=== PATIENT | female | born 1980 | race Caucasian/White ===

== ENCOUNTER → 2018-11-25 19:15 | Outpatient (CLI) | payer BC, SELFPAY ==
[2018-11-25 15:19] VITALS: BMI 43.2
[2018-11-28 12:26] LABS: HPV APTIMA, High Risk Negative (Negative)
== END ==
PROVIDERS: Referring Provider Nurse Practitioner Women's Health; Visit Provider Nurse Practitioner Women's Health
DX: Z12.4 Encounter for screening for malignant neoplasm of cervix (principal)
CPT/HCPCS: 87624; 88175; G0145

== ENCOUNTER → 2018-12-05 10:32 | Outpatient (CLI) | payer BC, SELFPAY ==
[2018-11-25 15:19] VITALS: BMI 43.2
--- NOTE | 2018-12-05 10:36 | BI_ITS ---
MAMMOGRAPHY - BILATERAL SCREENING REASON FOR EXAM: Female, 38 years old. Routine annual screening examination. PERTINENT HISTORY: Non-contributory. TECHNIQUE: Digital bilateral breast gualberto (3D mammographic acquisition) in the CC and MLO projections. 2-D mediolateral oblique (MLO) and craniocaudad (CC) views of both breasts were obtained. CAD: Full Field Digital Mammography with Computer Added Detection was performed. COMPARISON: None. Baseline examination. FINDINGS: Breast Composition: There are scattered areas of fibroglandular density. There are no dominant masses or suspicious calcifications. No other significant abnormalities are identified. BI/SCREENING MAMM (CAD), BILAT IMPRESSION: Negative screening mammogram. Yearly followup mammogram recommended. (A) ASSESSMENT CATEGORY: BIRADS Category 1: Negative. A letter regarding these results will be sent to the patient by the facility within 30 days. Approximately 10% of breast cancers are not detected by mammography. A normal mammogram should not delay biopsy of a clinically suspicious abnormality. [id number] Electronically Signed: Steven Mendoza MD at 8:24 EST Tel [phone], Service support ,
== END ==
PROVIDERS: Visit Provider Nurse Practitioner Women's Health
DX: Z12.31 Encounter for screening mammogram for malignant neoplasm of breast (principal)
CPT/HCPCS: 77063; 77067

== ENCOUNTER → 2020-04-28 14:57 | Outpatient (CLI) | payer BC, SELFPAY ==
[2018-11-25 15:19] VITALS: BMI 43.2
--- NOTE | 2020-04-28 15:00 | US_ITS ---
STUDY: ULTRASOUND OF THE FEMALE PELVIS - COMPLETE REASON FOR EXAM: Female, 40 years old. Left-sided pain TECHNIQUE: Transabdominal and Transvaginal TECHNICAL QUALITY: Adequate. COMPARISON: 08/19/2017 FINDINGS: The uterus is anteverted and is in a midline position. The uterus measures 7.9 x 3.7 x 3.6 cm. Normal uterine cervix. The endometrium measures there is a 1.3 x 1.2 cm fibroid in the body of uterus. mm in thickness, and is hyperechoic. There is no demonstrated endometrial mass. There is no demonstrated myometrial mass. The right ovary is visualized. The right ovary measures 2.7 x 1.7 x 1.7 cm. There is no right ovarian cyst or ovarian mass. There is no visualized right adnexal mass or complex lesion. There is normal arterial and normal venous vascularity. The left ovary is not visualized. There is no fluid in the cul-de-sac. US/Transvaginal Non- IMPRESSION: Left ovary not visualized. Normal right ovary with normal Doppler flow. 1.3 x 1.2 cm fibroid in the uterus. Electronically Signed: Juan Jose Rahman, at 16:34 EDT Tel , Service support ,
--- NOTE | 2020-04-28 15:00 | US_ITS ---
STUDY: ULTRASOUND OF THE FEMALE PELVIS - COMPLETE REASON FOR EXAM: Female, 40 years old. Left-sided pain TECHNIQUE: Transabdominal and Transvaginal TECHNICAL QUALITY: Adequate. COMPARISON: 08/19/2017 FINDINGS: The uterus is anteverted and is in a midline position. The uterus measures 7.9 x 3.7 x 3.6 cm. Normal uterine cervix. The endometrium measures there is a 1.3 x 1.2 cm fibroid in the body of uterus. mm in thickness, and is hyperechoic. There is no demonstrated endometrial mass. There is no demonstrated myometrial mass. The right ovary is visualized. The right ovary measures 2.7 x 1.7 x 1.7 cm. There is no right ovarian cyst or ovarian mass. There is no visualized right adnexal mass or complex lesion. There is normal arterial and normal venous vascularity. The left ovary is not visualized. There is no fluid in the cul-de-sac. US/Pelvic (Non ) IMPRESSION: Left ovary not visualized. Normal right ovary with normal Doppler flow. 1.3 x 1.2 cm fibroid in the uterus. Electronically Signed: Juan Jose Rahman, at 16:34 EDT Tel , Service support ,
== END ==
PROVIDERS: Referring Provider Nurse Practitioner Women's Health; Visit Provider Nurse Practitioner Women's Health
DX: R10.2 Pelvic and perineal pain (principal)
CPT/HCPCS: 76830; 76856

== ENCOUNTER → 2020-05-13 08:04 | Outpatient (CLI) | payer BC, SELFPAY ==
[2018-11-25 15:19] VITALS: BMI 43.2
[2020-05-13 08:24] LABS: Hematocrit 40.3 % (37-47); Hemoglobin 13.5 g/dL (12.0-15.0); Mean Corp Hgb Conc 33.5 g/dL (32-36); Mean Corpuscular Hgb 31.6 pg (27.0-32.0); Mean Corpuscular Volume 94.4 fL (81-99); Mean Platelet Vol. 9.9 fl (6.2-12.0); Platelet Count 237 K/mm3 (150-450); RBC Distribution Width CV 12.6 % (11.6-14.6); RBC Distribution Width SD 43.1 fl (35.1-43.9); Red Blood Count 4.27 M/mm3 (4.2-5.4); White Blood Count 6.9 K/mm3 (4.4-11.0)
[2020-05-13 08:53] LABS: ALB/GLOB Ratio 0.8 RATIO (0.9-2.4); AST(SGOT) 14 U/L (15-37); Alanine Aminotransfer ALT/SGPT 35 U/L (13-56); Albumin, Serum 3.2 g/dL (3.2-5.0); Alkaline Phosphatase 78 U/L (45-117); Anion Gap 6 (5-15); BUN 17 mg/dL (7-18); BUN/Creat Ratio 22.6 RATIO (10-20); Calcium,Total 8.6 mg/dL (8.5-10.1); Chloride 104 mmol/L (98-107); Cholesterol 224 mg/dL (200); Creatinine, Serum 0.75 mg/dL (0.55-1.02); EST Glomerular Filtration Rate 90 mL/min (>60); Est Glom Filt Rate - Afr Amer 109 mL/min (>60); Globulin 3.8 g/dL (2.2-4.2); Glucose 109 mg/dL (74-106); High Density Lipoprotein 51 mg/dL; Sodium Level 138 mmol/L (136-145); Triglycerides 247 mg/dL; Very Low Density Lipoprotein 49 mg/dL (5-40)
== END ==
PROVIDERS: PCP Family Medicine; Referring Provider Family Medicine; Visit Provider Family Medicine
DX: R10.9 Unspecified abdominal pain (principal); Z13.220 Encounter for screening for lipoid disorders
CPT/HCPCS: 36415; 80053; 80061; 85027

== ENCOUNTER → 2020-06-15 13:18 | Outpatient (CLI) | payer BC, SELFPAY ==
[2018-11-25 15:19] VITALS: BMI 43.2
[2020-06-15 15:28] LABS: CRP < 2.90 mg/L (0.0-3.0)
[2020-06-19 16:08] LABS: Endomysial Antibody IgA Negative (Negative)
[2020-06-21 16:45] LABS: Deamidated Gliadin IgA 3 units (0-19); Deamidated Gliadin IgG 4 units (0-19); Immunoglobulin A 251 mg/dL (87-352); t-Transglutaminase IgA <2 U/mL (0-3)
== END ==
PROVIDERS: PCP Family Medicine; Referring Provider Internal Medicine Gastroenterology; Visit Provider Internal Medicine Gastroenterology
DX: R10.9 Unspecified abdominal pain (principal)
CPT/HCPCS: 36415; 82784; 83516; 86140; 86255

== ENCOUNTER → 2020-06-23 | Outpatient (CLI) | payer BC, SELFPAY ==
[2018-11-25 15:19] VITALS: BMI 43.2
--- NOTE | 2020-06-23 | COLBX_PTH ---
PATIENT: CECILY KLINE LOC: [facility] U#:[id number] AGE/SX: 40/F ROOM: RE06/23/[address]: Dr. Ronald Szymanski MD : 1980 BED: DIS: 06/23/2020 SPEC #: [id number] RECD: 06/23/20 14:53 STATUS: THAO SIMMONS #: [id number] ОЛЬГА: 06/23/20 00:[address]: Ronald Szymanski DEPT: SURGICAL PATHOLOGY RECD BY: Avinash Phipps ENTERED: 06/26/20 08:21 SP TYPE: COLON BX OTHR DR: Dr. Zev Ruiz MD [facility] Tissues: COLON BIOPSY Procedures: Surgery Specimen Level IV HEADER OPERATION: Colon with biopsies PRE-OP DIAGNOSIS: LLQ abdomen pain, IBS TISSUE SUBMITTED: Right and left colon biopsy, rule out microscopic colitis MICROSCOPIC DIAGNOSIS Right and left colon, biopsy: Fragments of colonic mucosa, no pathologic diagnosis. SJ:manju 06/27/20 MICROSCOPIC DESCRIPTION Slides are reviewed. GROSS DESCRIPTION Received in fixative is one container labeled with the patient's name and designated right and left colon biopsy. The specimen consists of multiple irregular fragments of light muller soft tissue that in aggregate measure 1.5 x 1 x 0.1 cm. The specimen is totally submitted in one cassette. / FENG:manju 06/26/20 TC:4 CPT: 66927
== END | disposition home or self-care (01) ==
LOC: LABSPEC 15:29
PROVIDERS: PCP Family Medicine; Referring Provider Internal Medicine Gastroenterology; Visit Provider Internal Medicine Gastroenterology
DX: R10.32 Left lower quadrant pain (principal); K58.9 Irritable bowel syndrome, unspecified
CPT/HCPCS: 88305

== ENCOUNTER 2021-12-05 17:37 | Outpatient (CLI) | payer BC, SELFPAY ==
--- NOTE | 2021-12-05 17:45 | CT_ITS ---
STUDY: CT SOFT TISSUE NECK WITH CONTRAST REASON FOR EXAM: Female, 41 years old. EAR PAIN RADIATION DOSAGE (If Supplied By Facility): CTDIvol = ( 19.29 ) mGy, DLP = ( 534.89 ) mGycm TECHNIQUE: The patient was scanned in a multi-detector CT scanner. High resolution transaxial imaging was performed following intravenous administration of IV 100mL Isovue-300. Sagittal and coronal images were reconstructed. Individualized dose optimization techniques were used for this CT. COMPARISON: None. FINDINGS: Normal bilateral parotid glands. Normal bilateral research nutritionist spaces. Normal bilateral parapharyngeal spaces. Normal bilateral carotid spaces. There is a tortuous appearance of the bilateral carotid arteries. Normal bilateral sublingual and submandibular glands and spaces. Normal visualized nasopharynx. Normal retropharyngeal space. Normal perivertebral space. Normal visualized bilateral faucial tonsils. The visualized tongue, tongue base and oropharynx are normal. There is a nonspecific elongated appearance of the uvula. The visualized cervical lymph nodes (levels I-) are within normal size limits, and maintain normal morphology. There is no demonstrated solid or cystic mass lesion. There is no abnormal contrast enhancement. Normal epiglottis, bilateral vallecula and hypopharynx. The pre-epiglottic and paraglottic adipose spaces are normal. Normal visualized bilateral piriform sinuses, aryepiglottic folds, vocal cords, and arytenoid-cricoid articulations. Normal subglottic trachea. Normal bilateral lobes of the thyroid gland. Normal visualized pulmonary apices. There are small benign-appearing bony structures osteoid osteomas within the frontal sinuses. The ethmoid sinuses are clear. There is a right-sided greater than left middle turbinate severo bullosa. The bilateral ossicles appear well aerated. Mastoid air cells are relatively clear. External auditory canals are clear. There is a symmetric appearance of the internal auditory canals. There is multilevel degenerative changes of the cervical spine. C2-C3 there is a left lateral disc osteophyte with moderate left neural foraminal narrowing. At C5-C6 there is a broad disc osteophyte moderate neural foraminal narrowing moderate central stenosis, See image 30 series 2. At C6-C7 there is a broad disc osteophyte with mild neural foraminal narrowing minimal central stenosis. CT/Soft Tissue Neck WITH Contrast IMPRESSION: Normal enhanced CT examination of the soft tissues of the neck. Advanced degenerative change at the level of C5-C6 with moderate neural foraminal narrowing moderate central stenosis. Recommend MRI of the cervical spine when appropriate. Electronically Signed: Gillian Early MD at 0:49 EST Tel , Service support ,
== END 2021-12-05 23:59 | disposition short-term general hospital (02) ==
PROVIDERS: Visit Provider Otolaryngology
DX: H92.01 Otalgia, right ear (principal)
CPT/HCPCS: 70491; Q9967

== ENCOUNTER 2022-03-13 11:12 | Outpatient (CLI) | payer BC, SELFPAY ==
[2022-03-13 15:16] LABS: Hematocrit 42.9 % (37-47); Hemoglobin 14.4 g/dL (12.0-15.0); Mean Corp Hgb Conc 33.6 g/dL (32-36); Mean Corpuscular Hgb 30.6 pg (27.0-32.0); Mean Corpuscular Volume 91.1 fL (81-99); Mean Platelet Vol. 10.4 fl (6.2-12.0); Platelet Count 293 K/mm3 (150-450); RBC Distribution Width CV 12.8 % (11.6-14.6); RBC Distribution Width SD 41.6 fl (35.1-43.9); Red Blood Count 4.71 M/mm3 (4.2-5.4); White Blood Count 6.1 K/mm3 (4.4-11.0)
[2022-03-13 15:40] LABS: Vitamin B12 490 pg/mL (211-911)
[2022-03-13 15:42] LABS: ALB/GLOB Ratio 0.9 RATIO (0.9-2.4); AST(SGOT) 26 U/L (15-37); Alanine Aminotransfer ALT/SGPT 46 U/L (13-56); Albumin, Serum 3.6 g/dL (3.2-5.0); Alkaline Phosphatase 68 U/L (45-117); Anion Gap 7 (5-15); BUN 15 mg/dL (7-18); BUN/Creat Ratio 17.3 RATIO (10-20); Chloride 105 mmol/L (98-107); Creatinine, Serum 0.87 mg/dL (0.55-1.02); EST Glomerular Filtration Rate 75 mL/min (>60); Est Glom Filt Rate - Afr Amer 91 mL/min (>60); Globulin 4.1 g/dL (2.2-4.2); Glucose 95 mg/dL (74-106); Potassium 4.3 mmol/L (3.5-5.1); Protein, Total 7.7 g/dL (6.4-8.2); Sodium Level 140 mmol/L (136-145); Thyroid Stim Hormone (TSH) 1.64 uIU/mL (0.358-3.74)
== END 2022-03-13 23:59 | disposition home or self-care (01) ==
LOC: MFPLAB 11:13
PROVIDERS: PCP Nurse Practitioner Family; Referring Provider Nurse Practitioner Family; Visit Provider Nurse Practitioner Family
DX: R53.83 Other fatigue (principal)
CPT/HCPCS: 36415; 80053; 82306; 82607; 84443; 85027

== ENCOUNTER 2022-05-01 07:20 | Outpatient (RCR) | payer BC, SELFPAY | END 2022-05-23 23:59 | LOC: NS 07:20 | PROVIDERS: PCP Nurse Practitioner Family; Referring Provider Nurse Practitioner Family; Visit Provider Nurse Practitioner Family | DX: Z71.3 Dietary counseling and surveillance (principal); E66.9 Obesity, unspecified; Z68.42 Body mass index [BMI] 45.0-49.9, adult | CPT/HCPCS: 97802 ==

== ENCOUNTER 2022-10-12 09:30 | Outpatient (CLI) | payer BC, SELFPAY ==
[2022-10-12 11:28] LABS: Cholesterol 261 mg/dL (200); Glucose 124 mg/dL (74-106); High Density Lipoprotein 53 mg/dL; Triglycerides 303 mg/dL; Very Low Density Lipoprotein 61 mg/dL (5-40)
[2022-10-14 10:00] LABS: Vitamin D,25 Hydroxy 20.7 ng/mL
== END 2022-10-12 23:59 | disposition home or self-care (01) ==
PROVIDERS: PCP Internal Medicine; Referring Provider Nurse Practitioner Women's Health; Visit Provider Nurse Practitioner Women's Health
DX: Z13.1 Encounter for screening for diabetes mellitus (principal); Z13.220 Encounter for screening for lipoid disorders; Z13.29 Encounter for screening for other suspected endocrine disorder
CPT/HCPCS: 36415; 80061; 82306; 82947; 84443

== ENCOUNTER 2022-10-14 14:32 | Outpatient (CLI) | payer BC, SELFPAY ==
--- NOTE | 2022-10-14 14:33 | BI_ITS ---
MAMMOGRAPHY - BILATERAL SCREENING REASON FOR EXAM: Female, 42 years old. Routine annual screening examination. PERTINENT HISTORY: Non-contributory. TECHNIQUE: Digital bilateral breast jean (3D mammographic acquisition) in the CC and MLO projections. 2-D mediolateral oblique (MLO) and craniocaudad (CC) views of both breasts were obtained. CAD: Full Field Digital Mammography with Computer Added Detection was performed. COMPARISON: Mammogram from 05/05/2019. FINDINGS: Breast Composition: There are scattered areas of fibroglandular density. There are no dominant masses or suspicious calcifications. No other significant abnormalities are identified. BI/SCRN MAMM (CAD)W/JEAN BILAT IMPRESSION: Stable bilateral screening mammogram. Yearly follow-up mammogram recommended. (A) ASSESSMENT CATEGORY: BIRADS Category 1: Negative. A letter regarding these results will be sent to the patient by the facility within 30 days. Approximately 10% of breast cancers are not detected by mammography. A normal mammogram should not delay biopsy of a clinically suspicious abnormality. Electronically Signed: Scott Carroll, at 15:55 EST ,
== END 2022-10-14 23:59 | disposition home or self-care (01) ==
PROVIDERS: PCP Internal Medicine; Visit Provider Nurse Practitioner Women's Health
DX: Z12.31 Encounter for screening mammogram for malignant neoplasm of breast (principal)
CPT/HCPCS: 77063; 77067

== ENCOUNTER 2022-10-16 08:15 | Outpatient (CLI) | payer BC, SELFPAY ==
--- NOTE | 2022-10-16 08:20 | US_ITS ---
STUDY: ULTRASOUND OF THE FEMALE PELVIS - COMPLETE REASON FOR EXAM: Female, 42 years old. Menorrhagia LMP: 09/30/2022 TECHNIQUE: Transabdominal and Transvaginal with DOPPLER TECHNICAL QUALITY: Adequate. COMPARISON: 04/28/2020 ultrasound pelvis. FINDINGS: The uterus is anteverted and is in a midline position. The uterus measures 8.9 x 4.6 x 3.8 cm. There is a Nabothian cyst of the cervix. The endometrium measures 11.2 mm in thickness, and is hyperechoic. There is no demonstrated endometrial mass. There is a lower uterine segment there is a near isodense mass measuring 1.4 x 1.1 x 0.9 cm. On the transverse view there is a visualized exophytic hypoechoic fundal mass measuring 1.5 x 1.6 x 1.1 cm. I.U.D. - The patient does not have an I.U.D. The right ovary is visualized. The right ovary measures 3.2 x 2.7 x 1.7 cm. There is no right ovarian cyst or ovarian mass. There is no visualized right adnexal mass or complex lesion. There is normal arterial and normal venous vascularity. The left ovary is nonvisualized. The left ovary is not visualized on prior study 04/28/2020. There is no fluid in the cul-de-sac. The bladder is mildly distended on the transvaginal and transabdominal imaging. Polycystic ovary disease: No. US/Pelvic (Non ) IMPRESSION: 2 small fibroids. Within normal limits endometrium. The left ovary is not visualized perhaps due to overlying bowel gas. Electronically Signed: Gillian Early MD at 9:32 EST ,
== END 2022-10-16 23:59 | disposition home or self-care (01) ==
PROVIDERS: PCP Internal Medicine; Referring Provider Nurse Practitioner Women's Health; Visit Provider Nurse Practitioner Women's Health
DX: N92.1 Excessive and frequent menstruation with irregular cycle (principal)
CPT/HCPCS: 76830; 76856

== ENCOUNTER 2022-10-24 10:20 | Outpatient (CLI) | payer BC, SELFPAY | END 2022-10-24 23:59 | disposition home or self-care (01) | PROVIDERS: PCP Internal Medicine; Referring Provider Internal Medicine; Visit Provider Internal Medicine | DX: J34.89 Other specified disorders of nose and nasal sinuses (principal); Z20.822 Contact with and (suspected) exposure to COVID-19 | CPT/HCPCS: 87635; U0003; U0005 ==

== ENCOUNTER → 2022-11-12 | Outpatient (CLI) | payer BC, SELFPAY ==
--- NOTE | 2022-11-12 08:00 | EMB_PTH ---
PATIENT: CECILY KLINE [facility] U#:[id number] AGE/SX: 42/F ROOM: RE11/12/[address]: KELSI Frederick : 1980 BED: DIS: 11/12/2022 SPEC #: [id number] RECD: 11/12/22 10:31 STATUS: THAO TROY #: [id number] ОЛЬГА: 11/12/22 08:[address]: Maegan Mix NP DEPT: SURGICAL PATHOLOGY RECD BY: Payton Powers ENTERED: 11/12/22 13:00 SP TYPE: ENDOM BX/C HETAL DR: Dr. Jana Norris MD Tissues: Endometrium, NOS Procedures: Surgery Specimen Level IV HEADER OPERATION: Endometrial biopsy PRE-OP DIAGNOSIS: Abnormal uterine bleeding TISSUE SUBMITTED: Endometrial tissue MICROSCOPIC DIAGNOSIS Endometrial biopsy: Simple endometrial hyperplasia with extensive morular metaplasia and without atypia. See comment. FENG:manju 11/13/2022 COMMENT Clinical correlation and appropriate follow up are necessary. Case has been reviewed in consultation with Dr. Lozoya who concurs with the above diagnosis. IDC:AM MICROSCOPIC DESCRIPTION Slides are reviewed. GROSS DESCRIPTION Received is one container labeled with the patient's name and not further designated. The specimen consists of multiple irregular fragments of muller-pink soft tissue mixed with mucoid tissue that in aggregate measure 2.5 x 1 x 0.1 cm. The specimen is totally submitted in one cassette. / FENG:manju 11/12/2022 TC:5 CPT: 40852
== END | disposition home or self-care (01) ==
LOC: LABSPEC 10:38
PROVIDERS: PCP Internal Medicine; Referring Provider Nurse Practitioner Women's Health; Visit Provider Nurse Practitioner Women's Health
DX: N93.9 Abnormal uterine and vaginal bleeding, unspecified (principal)
CPT/HCPCS: 88305

== ENCOUNTER 2022-12-10 09:44 | Day surgery (SDC) | payer BC, SELFPAY ==
[2022-12-10] VITALS (11 sets, daily range): BP systolic 150–170; BP diastolic 68–141; PULSE 65–76; RESP 16; TEMP 36.3–36.9; O2SAT 94–99; BMI 48.0
--- NOTE | 2022-12-10 10:20 | PCM.HP.BLA ---
History and Physical Date of Admission: 12/10/22 Intake Vital Signs ? 11/29/2311:00 11/29/2311:02 Height 5 ft 3 in 5 ft 3 in Weight: 272 lb 8 oz ? BMI 48.2 ? BP 175/98 H ? Intake Visit Reasons:?[employer] Systems Consultant Required: No Is patient in pain?: No Allergies No Known Allergies Allergy (Verified 11/29/22 12:01) Medications sertraline 25 mg tablet (Zoloft) 25 mg PO DAILY #30 tabs 10/15/22 [Rx Confirmed 11/29/22] fluticasone propionate 50 mcg/actuation nasal spray,suspension (Flonase Allergy Relief) 1 spray intranasal DAILY #16 grams 10/24/22 [Rx Confirmed 11/29/22] Post menopausal: No Patient : No : No PFSH Medical History? Infertility associated with anovulation Surgical History? Uterine polyp Family History? Brother Myocardial infarctionFather Myocardial infarction Kidney disease Hypertension FH: prostate cancerMother HypertensionUncle Colon cancer Social History? household members:? spouse number of children:? 0 current occupational status:? employed current occupation:? [employer] Smoking Status:? Never smoker Electronic Cigarette Use:? not used alcohol intake:? never substance use type:? does not use seatbelt use:? sometimes do you feel safe at home:? Yes additional social history:? ? A[employer] ? ? 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 She has many concerns and questions about her simple hyperplasia without atypia. She states that she may be open to the idea of a mirena after a D&C procedure but wants to discuss with her first. Currently she is scheduled for a hysteroscopy D&C on 12/10/22.? History ? ? ? 1 ? Elective abortions ? Hx Para ? ? ? 0 ? Spontaneous abortions ? ? ? 1 Hx # Term Pregnancies ? Ectopic pregnancies ? Hx # Pregnancies ? Multiple births ? # of living children ? ? ? 0 ROS Const ROS Unobtainable: All systems reviewed & are unremarkable except as noted in H Resp Resp: Reports system reviewed and no additional complaints, except as documented; Denies cough GI GI: Reports as per HPI Psych Psych: Reports system reviewed and no additional complaints, except as documented Exam Const General: cooperative, healthy appearing, comfortable and no acute distress Resp Effort & Inspection: normal respiratory effort Skin General: no rashes or lesions noted Psych Appearance: grossly normal Speech and Movement: speech and movement normal Coding Level of Care Code Off vis,est,level 4 Diagnoses Endometrial hyperplasia without atypia? N85.00 Assessment and Plan Assessment and Plan (1) Endometrial hyperplasia without atypia: ?Status:?Acute ?Comment: simple without atypia Plan After discussing the patient's diagnosis and treatment plan options, patient wishes to proceed with surgical management. Plan for hysteroscopy D&C possible placement of mirena IUD if decides. otherwise, will treat with progesterone PO ?I have discussed with the patient the risks, benefits, and alternatives of the procedure which include but are not limited to risks of anesthesia, bleeding, infection, possible damage to bowel, bladder, or surrounding vasculature which could lead to additional surgery to evaluate any complications.? Patient agrees to procedure and wishes to proceed.? ACOG/uptodate references given for additional information regarding procedure.? 11/29/22 [id number] <Electronically signed by Tanya Romano DO> UPDATE- I have seen the patient and performed any clinically relevant updates to the history and physical exam. Tanya Romano, DO
[2022-12-10] MEDS: Lactated Ringers 1,000 ML 15 ML IV ×2 (10:23→13:01)
[2022-12-10 10:25] LABS: Hematocrit 43.2 % (37-47); Hemoglobin 14.9 g/dL (12.0-15.0); Mean Corp Hgb Conc 34.5 g/dL (32-36); Mean Corpuscular Hgb 31.3 pg (27.0-32.0); Mean Corpuscular Volume 90.8 fL (81-99); Mean Platelet Vol. 10.2 fl (6.2-12.0); Platelet Count 273 K/mm3 (150-450); RBC Distribution Width CV 12.2 % (11.6-14.6); RBC Distribution Width SD 40.5 fl (35.1-43.9); Red Blood Count 4.76 M/mm3 (4.2-5.4); White Blood Count 6.8 K/mm3 (4.4-11.0)
[2022-12-10 10:27] LABS: Internal QC Validated? YES +Cl - CLEAR BKGD; Pregnancy, Urine Negative Negative
--- NOTE | 2022-12-10 11:30 | EMB_PTH ---
PATIENT: CECILY KLINE [place] [facility] [place][id number] AGE/SX: 42/F ROOM: RE12/10/[address]: Dr. Tanya Romano DO : 1980 BED: DIS: 12/10/2022 SPEC #: [id number] RECD: 12/10/22 14:34 STATUS: THAO REKatlyn #: [id number] ОЛЬГА: 12/10/22 11:[address]: Tanya Romano DEPT: SURGICAL PATHOLOGY RECD BY: Raya Ron ENTERED: 12/11/22 08:30 SP TYPE: ENDOM BX/C OTHR DR: Dr. Jana Norris MD Tissues: Endometrium, NOS Procedures: Surgery Specimen Level IV HEADER OPERATION: Hysteroscopy, D & C, Mirena IUD insertion PRE-OP DIAGNOSIS: Endometrial hyperplasia TISSUE SUBMITTED: Endometrial curettings MICROSCOPIC DIAGNOSIS Endometrial curettings: Proliferative endometrium with extensive morular metaplasia. Negative for hyperplasia. SJ:manju 12/12/2022 COMMENT Please make reference to previous specimen ([id number]) endometrial biopsy with diagnosis of ?simple endometrial hyperplasia with extensive morular metaplasia and without atypia.? Case has been reviewed in consultation with Dr. Lozoya who concurs with the above diagnosis. IDC:SIMON MICROSCOPIC DESCRIPTION Slides are reviewed. GROSS DESCRIPTION Received in fixative is one container labeled with the patient's name and designated endometrial curettings. The specimen consists of multiple irregular fragments of light to dark muller soft tissue that in aggregate measure 3 x 2.5 x 0.1 cm. The specimen is totally submitted in one cassette. / AM:manju 12/11/2022 TC:5 CPT: 87209
--- NOTE | 2022-12-10 11:41 | DCINST_ITS ---
Discharge Instructions Diet Discharge Diet: No restrictions Activity Discharge Activity: Return to Normal Activity, May Shower and May Take a Tub Bath (after 1 week) May resume sexual activity in: 1-2 weeks Weight Bearing Status: Weight bearing as tolerated Lifting Restrictions: none Dressing / Incision Call your doctor if you observe: Fever of 101 or Higher, Using more than 1 pad per hour, Shortness of breath and Uncontrolled pain Follow Up Care Please Follow Up With: Tanya Romano DO When: Call [phone] to schedule appointment. Test Results: Test results from this visit will be discussed in further detail at your follow- up appointment, if applicable. Discharge Plan Admission Primary Reason for Your Visit: hysteroscopy, placement of intrauterine device Attending Provider: Tanya Romano Primary Care Provider: Jana Norris Discharge Orders/Prescriptions Prescriptions: New oxycodone-acetaminophen [Percocet] 5-325 mg tablet 1 tab PO Q4H PRN (Reason: pain) 3 Days Qty: 10 0RF Rx Instructions: 1-2 tabs q 4 hrs as needed for pain naproxen 500 mg tablet 500 mg PO BID PRN (Reason: pain) Qty: 20 0RF Continued sertraline [Zoloft] 25 mg tablet 25 mg PO DAILY Qty: 30 1RF Referrals / Follow Up: Jana Norris MD [Primary Care Provider] - Disposition Disposition (needs filled in before D/C Order can be placed): Home, Self Care
--- NOTE | 2022-12-10 11:47 | PCM.OP.BLANK ---
Problems Associated Problem List Diagnoses (1) Menorrhagia with irregular cycle: (2) Endometrial hyperplasia without atypia: Operative Report Date of Procedure: 12/10/22 preoperative diagnosis: menorrhagia and office biopsy diagnosis of simple hyperplasia without atypia Postoperative diagnosis:menorrhagia and office biopsy diagnosis of simple hyperplasia without atypia Surgery: hysteroscopy Dilation and curettage, placement of mirena IUD Surgeon: Dr. Tanya Romano DO EBL: minimal urine output: 30cc findings:normal appearing uterus specimens removed: endometrial curettings Details of the procedure: Patient was prepped and draped in a normal sterile fashion under MAC anesthesia. A weighted speculum was placed in the vagina and the anterior lip of the cervix was grasped with a single-tooth tenaculum. A paracervical block was placed with 1% lidocaine. Cervix was progressively dilated to allow passage of a 5 mm hysteroscope. The lining was fully visualized and noted to have a normal appearing lining . Uterine sounded to 8 cm and a curettage was performed and specimen was sent to pathology . The mirena IUD was placed at the fundus without difficulty. All instruments were removed from the vagina and excellent hemostasis was noted. Patient was awoken and taken to recovery in stable condition. Multi Select Codes Urinary/Genital Urinary/Genital CPT Codes: 34301 Hysteroscopy,EMC, Polypectomy and Other Procedure See Report (placement of mirena IUD )
[2022-12-10] MEDS: Lidocaine 1% (30 ml sdv) 30 ML Vial (11:58)
== END 2022-12-10 15:07 | disposition home or self-care (01) ==
LOC: SDC 09:51 → AC 09:51
PROVIDERS: PCP Internal Medicine; Referring Provider Obstetrics & Gynecology; Visit Provider Obstetrics & Gynecology
PROC: 0UDB8ZZ Extraction of Endometrium, Via Natural or Artificial Opening Endoscopic (ICD-10-PCS; CPT 58558; principal; 2022-12-10 11:20)
DX: N92.0 Excessive and frequent menstruation with regular cycle (principal); N85.00 Endometrial hyperplasia, unspecified; E78.2 Mixed hyperlipidemia; F41.9 Anxiety disorder, unspecified
CPT/HCPCS: 58300; 58558; 00952; 81025; 85027; 86850; 86900; 86901; 88305; J7120; J2405

== ENCOUNTER → 2023-01-01 | Outpatient (CLI) | payer BC, SELFPAY ==
[2023-01-01 13:13] LABS: NATERA MAILED SPECIMEN
== END | disposition home or self-care (01) ==
PROVIDERS: PCP Internal Medicine; Referring Provider Obstetrics & Gynecology; Visit Provider Obstetrics & Gynecology
DX: Z80.9 Family history of malignant neoplasm, unspecified (principal)
CPT/HCPCS: 36415

== ENCOUNTER → 2023-01-29 | Outpatient (CLI) | payer BC, SELFPAY ==
[2023-01-29 12:54] LABS: Absolute Lymphocyte Count 2.22 X10^3/uL (0.83-4.51); Absolute Neutrophil Count 2.7 X10^3/uL (2.0-7.7); Basophil# 0.04 X10^3/uL; Basophil% 0.7 % (0-1); Eosinophils% 1.8 % (0-5); Hematocrit 40.9 % (37-47); Hemoglobin 13.8 g/dL (12.0-15.0); Lymphocyte # 2.22 X10^3/ul (0.83-4.51); Lymphocyte % 39.6 % (19-41); Mean Corp Hgb Conc 33.7 g/dL (32-36); Mean Corpuscular Hgb 31.2 pg (27.0-32.0); Mean Corpuscular Volume 92.5 fL (81-99); Mean Platelet Vol. 10.7 fl (6.2-12.0); Monocyte# 0.49 X10^3/uL; Monocyte% 8.8 % (0-10); NRBC Flagged by Analyzer 0 % (0-5); Neutrophil # 2.74 X10^3/uL (2.7-7.7); Neutrophil % 48.9 % (47-70); Platelet Count 277 K/mm3 (150-450); RBC Distribution Width CV 12.3 % (11.6-14.6); RBC Distribution Width SD 42.1 fl (35.1-43.9); Red Blood Count 4.42 M/mm3 (4.2-5.4); White Blood Count 5.6 K/mm3 (4.4-11.0)
[2023-01-29 12:58] LABS: Vitamin D,25 Hydroxy 16.9 ng/mL
[2023-01-29 13:08] LABS: ALB/GLOB Ratio 0.9 RATIO (0.9-2.4); AST(SGOT) 19 U/L (15-37); Alanine Aminotransfer ALT/SGPT 27 U/L (13-56); Albumin, Serum 3.5 g/dL (3.2-5.0); Alkaline Phosphatase 84 U/L (45-117); Anion Gap 9 (5-15); BUN 18 mg/dL (7-18); BUN/Creat Ratio 20.2 RATIO (10-20); Calcium,Total 9.6 mg/dL (8.5-10.1); Chloride 102 mmol/L (98-107); Cholesterol 265 mg/dL (200); Creatinine, Serum 0.89 mg/dL (0.55-1.02); EST Glomerular Filtration Rate 73 mL/min (>60); Est Glom Filt Rate - Afr Amer 88 mL/min (>60); Globulin 3.8 g/dL (2.2-4.2); Glucose 116 mg/dL (74-106); High Density Lipoprotein 47 mg/dL; Magnesium 2.2 mg/dL (1.6-2.6); Potassium 3.6 mmol/L (3.5-5.1); Protein, Total 7.3 g/dL (6.4-8.2); Sodium Level 140 mmol/L (136-145); Triglycerides 224 mg/dL; Very Low Density Lipoprotein 45 mg/dL (5-40)
== END | disposition home or self-care (01) ==
LOC: BIMLAB 09:24
PROVIDERS: PCP Internal Medicine; Referring Provider Internal Medicine; Visit Provider Internal Medicine
DX: I10 Essential (primary) hypertension (principal); E78.2 Mixed hyperlipidemia; E55.9 Vitamin D deficiency, unspecified
CPT/HCPCS: 36415; 80053; 80061; 82306; 83735; 85025

== ENCOUNTER → 2023-06-24 | Outpatient (CLI) | payer BC, SELFPAY ==
--- NOTE | 2023-06-24 12:44 | US_ITS ---
STUDY: ULTRASOUND OF THE FEMALE PELVIS - COMPLETE REASON FOR EXAM: Female, 43 years old. endometrial hyperplasia LMP: 06/11/2023 TECHNIQUE: Transabdominal and Transvaginal TECHNICAL QUALITY: Limited. Examination limited due to obesity. COMPARISON: None. FINDINGS: The uterus is anteverted and is in a midline position. The uterus measures 8.1 x 3.3 x 4.8 cm. Normal uterine cervix. The endometrium measures 6 mm in thickness, and is hyperechoic. There is no demonstrated endometrial mass. There is no demonstrated myometrial mass. I.U.D. - The patient does have an I.U.D. The right ovary is non-visualized because of bowel gas. The left ovary is visualized because of bowel gas. There is no fluid in the cul-de-sac. The pre void volume of the bladder was 230 ml. US/Pelvic w/ Transvaginal IMPRESSION: Limited as above, grossly negative female pelvis. Electronically Signed: Wai Kapadia MD at 19:51 EDT ,
== END | disposition home or self-care (01) ==
LOC: US 12:43
PROVIDERS: PCP Internal Medicine; Referring Provider Obstetrics & Gynecology; Visit Provider Obstetrics & Gynecology
DX: N92.1 Excessive and frequent menstruation with irregular cycle (principal); N85.00 Endometrial hyperplasia, unspecified
CPT/HCPCS: 76830; 76856

== ENCOUNTER → 2023-07-09 | Outpatient (CLI) | payer BC, SELFPAY ==
--- NOTE | 2023-07-09 08:47 | ECHOCS_ITS ---
Reason For Study: ABN EKG Procedure This was a 2D Doppler, Color Flow transthoracic echocardiogram. The study was technically difficult. Contrast injection was performed. Exam performed in department. Left Ventricle Normal LV size. Mild concentric left ventricular hypertrophy. Left ventricular systolic function is normal. The estimated ejection fraction is 65 %. Diastolic function is indeterminate. Right Ventricle Normal RV size. Normal systolic function. Atria The left atrium is mildly enlarged. Normal right atrium. Mitral Valve Normal mitral valve. Tricuspid Valve Normal tricuspid valve. Trivial tricuspid valve insufficiency. Right ventricular systolic pressure estimated to be 37 mmHg. Aortic Valve The aortic valve is not well visualized in the short axis view. Mild focal aortic valve thickening. There is no aortic stenosis. Pulmonic Valve The pulmonic valve is not well visualized. Great Vessels Normal aortic root. Pericardium/Pleural No pericardial effusion. Medication 22 gauge I.V. with prn adaptor inserted into right arm. Diluted definity 2.5ml given slow IV push to enhance endocardial definition. MMode/2D Measurements & Calculations Ao root diam: 3.3 cm LAV(MOD-bp): 85.8 ml LVAd ap4: 32.7 cm2 LAV(MOD-bp) Indexed: 39.1 ml/m2 LVLd ap4: 9.5 cm LAV(MOD-sp2): 77.9 ml EDV(MOD-sp4): 89.4 ml LAV(MOD-sp4): 77.4 ml EDV(sp4-el): 95.4 ml LVAs ap4: 18.9 cm2 LVLs ap4: 7.5 cm ESV(MOD-sp4): 39.3 ml ESV(sp4-el): 40.9 ml EF(MOD-sp4): 56.1 % EF(sp4-el): 57.2 % SV(MOD-sp4): 50.1 ml SV(sp4-el): 54.6 ml LA A4 area: 25.4 cm2 LA dimension(2D): 4.2 cm TAPSE: 2.4 cm RA A4 area: 15.3 cm2 Time Measurements MV dec time: 0.21 sec Doppler Measurements & Calculations MV E max jae: 69.0 cm/sec Lat Peak E' Jae: 10.2 cm/sec Med Peak E' Jae: 7.3 cm/sec MV A max jae: 73.1 cm/sec E/E' lat: 6.8 E/E' med: 9.4 MV E/A: 0.94 MV V2 max: 83.2 cm/sec MV dec slope: 342.3 cm/sec2 Ao V2 max: 188.1 cm/sec MV max P.8 mmHg Ao max P.2 mmHg MV V2 mean: 49.2 cm/sec Ao V2 mean: 124.5 cm/sec MV mean P.1 mmHg Ao mean P.3 mmHg MV V2 VTI: 30.9 cm Ao V2 VTI: 38.5 cm AV (velocity ratio): 1.0 LV V1 max: 157.1 cm/sec PA V2 max: 69.1 cm/sec TR max jae: 293.0 cm/sec LV V1 max P.9 mmHg PA V2 mean: 49.4 cm/sec TR max P.3 mmHg LV V1 mean P.8 mmHg LV V1 mean: 103.9 cm/sec LV V1 VTI: 38.7 cm ECHO/Echo Complete W/ Contrast Interpretation Summary TDS With overall normal LV systolic function Contrast echo used/Definity for well demonstration of the endocardial borders. The estimated ejection fraction is 65 %. Mild concentric left ventricular hypertrophy. The study was technically difficult. Contrast injection was performed. Ordering Physician: Arnold Warner Referring Physician: Arnold Warner Performed By: Demetria Lindquist RCS
== END | disposition home or self-care (01) ==
LOC: CVS 08:45
PROVIDERS: PCP Family Medicine; Referring Provider Family Medicine; Visit Provider Family Medicine
DX: R94.31 Abnormal electrocardiogram [ECG] [EKG] (principal)
CPT/HCPCS: 93306; Q9957; A4216; C8929

== ENCOUNTER → 2023-07-22 | Outpatient (CLI) | payer BC, SELFPAY ==
--- NOTE | 2023-07-22 14:20 | EMB_PTH ---
PATIENT: CECILY KLINE LOC: [facility] U#:[id number] AGE/SX: 43/F ROOM: RE07/22/[address]: Dr. Tanya Romano DO : 1980 BED: DIS: 07/22/2023 SPEC #: [id number] RECD: 07/22/23 15:53 STATUS: THAO TROY #: [id number] ОЛЬГА: 07/22/23 14:[address]: Tanya Romano DEPT: SURGICAL PATHOLOGY RECD BY: Payton Powers ENTERED: 07/23/23 10:54 SP TYPE: ENDOM BX/C HETAL DR: Arnold Warner MD Tissues: Endometrium, NOS Procedures: Surgery Specimen Level IV HEADER OPERATION: Endometrial biopsy PRE-OP DIAGNOSIS: Simple endometrial hyperplasia TISSUE SUBMITTED: Endometrial lining MICROSCOPIC DIAGNOSIS Endometrial biopsy: Consistent with exogenous hormone effects. See comment. FENG:manju 07/24/2023 COMMENT Clinical correlation and appropriate follow up are necessary. Please make reference to previous specimen ([id number]) endometrial biopsy with diagnosis of simple endometrial hyperplasia with extensive morular metaplasia and without atypia. MICROSCOPIC DESCRIPTION Slides are reviewed. GROSS DESCRIPTION Received is one container labeled with the patient's name and not further designated. The specimen consists of multiple fragments of pink hemorrhagic soft tissue mixed with mucoid tissue that in aggregate measure 2.5 x 1.5 x 0.1 cm. The specimen is totally submitted in one cassette. / SJ:manju 07/23/2023 TC:5 CPT: 94695
== END | disposition home or self-care (01) ==
PROVIDERS: PCP Family Medicine; Referring Provider Obstetrics & Gynecology; Visit Provider Obstetrics & Gynecology
DX: N85.00 Endometrial hyperplasia, unspecified (principal)
CPT/HCPCS: 88305

== ENCOUNTER → 2023-10-18 | Outpatient (CLI) | payer BC, SELFPAY ==
[2023-10-18 10:29] LABS: Follicle Stimulating Hormone 15.2 mIU/mL; Luteinizing Hormone 20.2 mIU/mL; Prolactin 7.7 ng/mL; T4 Free Direct 1.11 ng/dL (0.76-1.46); Thyroid Stim Hormone (TSH) 1.82 uIU/mL (0.358-3.74)
[2023-10-19 10:07] LABS: Thyroid Peroxidase AB 11 IU/mL (0-34)
[2023-10-20 09:45] LABS: Insulin 40.2 mU/L (2.6-37.6); Vitamin D,25 Hydroxy 20.9 ng/mL
== END | disposition home or self-care (01) ==
LOC: LAB 09:24
PROVIDERS: PCP Family Medicine; Referring Provider Family Medicine; Visit Provider Family Medicine
DX: E55.9 Vitamin D deficiency, unspecified (principal); E66.01 Morbid (severe) obesity due to excess calories; R23.2 Flushing
CPT/HCPCS: 36415; 82306; 83001; 83002; 83525; 84146; 84439; 84443; 86376

== ENCOUNTER 2024-07-22 18:18 | Emergency (ER) | payer BC, SELFPAY ==
[2024-07-22 18:19] VITALS: BP 182/93; PULSE 70; RESP 18; TEMP 35.8; O2SAT 96; BMI 49.6
--- NOTE | 2024-07-22 18:34 | EDS_ITS ---
HPI History of Present Illness Chief Complaint: Lower Extremity Injury Narrative Narrative: 44-year-old female past medical history of hypertension has had knee aches in the past, presents with 2 to 3 days of increasing left knee pain. It hurts in her kneecap when she puts pressure on it or stands. She denies any fevers or chills, no nausea or vomiting. No recent injury or fall. States he tried to see an orthopod today but they could not get her in for a few weeks. She has pain mainly in the patellar area right on the kneecap, and additionally towards the left. No noted change in color. [facility] Medical History Bilateral primary osteoarthritis of knee Bilateral knee pain Genetic testing of female Wears glasses Anxiety History of steroid therapy Sleep apnea Non-smoker White coat syndrome with hypertension Infertility associated with anovulation Home Medications ?Medication ?Instructions ?Recorded ?Last Taken ?Type amlodipine 5 mg tablet 5 mg PO DAILY 07/22/23 Unknown History levonorgestrel 21 mcg/24 hr (up to 1 device intrauterine ONCE 07/22/23 Unknown History 8 years) 52 mg intrauterine device (Mirena) lisinopril 20 mg tablet 20 mg PO DAILY 07/22/23 Unknown History azithromycin 250 mg tablet See Rx Instructions PO .COMPLEX #6 08/17/23 Unknown Rx (Zithromax Z-Girish) tabs Allergy/AdvReac Type Severity Reaction Status Date / Time No Known Allergies Allergy Verified 07/22/24 18:18 Family History Brother Myocardial infarction Father Myocardial infarction Kidney disease Hypertension FH: prostate cancer Mother Hypertension Uncle Colon cancer Grandmother Uterine cancer Aunt Cancer Surgical History H/O dilation and curettage Status post hysteroscopy (~12/10/22) Uterine polyp Social History household members: spouse number of children: 0 current occupational status: employed current occupation: [employer] Smoking Status: Never smoker Electronic Cigarette Use: not used alcohol intake: never substance use type: does not use seatbelt use: sometimes do you feel safe at home: Yes 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 HEENT: No sore throat. No neck pain. No loss of vision. No rhinorrhea. Cardiovascular: No chest pain. No palpitations. No pedal edema. Respiratory: No cough, no shortness of breath. Abdominal: No abdominal pain. No nausea. No vomiting. Genitourinary: No dysuria. No hematuria. Musculoskeletal: No myalgias. Left knee pain, on the left patella and laterally. Neurologic: No headaches. No dizziness. No lightheadedness. Skin: No rash. No change in color. No noted erythema. Psychiatric: No depression. No anxiety. EXAM Physical Exam Narrative Exam Narrative: Afebrile. Vital signs noted. Nontoxic-appearing. Focused examination of the knee shows mild tenderness to palpation on the patella and towards the left and the lateral meniscal line. She is able to flex and extend her left knee without difficulty and pick it up off the bed. She appears neurovascular tact distally with a palpable dorsalis pedis pulse. EHL intact, left. Const Vital Signs: 07/22/24 18:19 Temperature 96.5 F L Temperature Source Temporal Pulse Rate 70 Respiratory Rate 18 Blood Pressure 182/93 H Blood Pressure Mean 122 Pulse Ox 96 Oxygen Delivery Method Room Air MDM MDM MDM Narrative Medical decision making narrative: Differential diagnosis includes but not limited to patellar tendinitis versus fracture versus left lateral collateral ligament strain versus tear versus lateral meniscal injury. I have very low suspicion for septic arthritis based o n her physical examination as there is no erythema and no pain with passive range of motion and she has active range of motion. She states that sometimes her knee might lock up on her. I will obtain baseline x-rays to rule out fracture or arthritis/smaller lateral compartment space. She was told that she should continue ice and elevation at home and perhaps add [id number] anti-inflammatories, but she does have a history of high blood pressure. She was referred to orthopedics on-call. X-rays interpreted by myself independently of the left knee shows no evidence of acute fracture or joint effusion. I reviewed the radiology report which confirms my independent interpretation. At this point in time she was placed in an [place] wrap and told to continue ice and elevation at home along with [id number] analgesics. She will follow-up with orthopedics and/or her primary care provider in 1 week if not improving. Disposition is discharged home in stable condition. History & Record Review Discussion w/independent historian: Patient Radiography Diagnostic Testing: Clinical Impression(s) from Imaging Studies Knee X-Ray 07/22/24 18:50 IMPRESSION: Normal x-ray examination of the knee. Electronically Signed: Wai Kapadia MD at 19:15 EDT , Discharge Plan Triage Chief Complaint: Lower Extremity Injury ED Provider: Dave Gloria Dx/Rx/DC Orders Clinical Impression: Arthralgia of knee, left, Acute knee pain Instructions: ED Knee Pain of Uncertain Cause Prescriptions: No Action lisinopril 20 mg tablet 20 mg PO DAILY amlodipine 5 mg tablet 5 mg PO DAILY Mirena 21 mcg/24 hours (8 yrs) 52 mg intrauterine device 1 device intrauterine ONCE Rx Instructions: as a single dose azithromycin [Zithromax Z-Girish] 250 mg tablet See Rx Instructions PO .COMPLEX Qty: 6 0RF Rx Instructions: For 250 mg dose pack: take 500 mg today (day 1), then 250 mg for 4 days (days 2-5) PO Primary Care Provider: Arnold Warner Referrals: Arnold Warner MD [Primary Care Provider] - 1 Week if not improving Zachary Kimball MD [Med Staff - Active Staff] - As soon as possible Activity Restrictions/Additional Instructions: Take veuc-rhq-[id number] medications as needed for pain. Continue ice and elevation of your left knee. Return with fever, redness to left knee, new or worsening symptoms. Print Language: Kinyarwanda Disposition Disposition: Home, Self Care
--- NOTE | 2024-07-22 18:50 | RAD_ITS ---
STUDY: X-RAY - LEFT KNEE REASON FOR EXAM: Female, 44 years old. knee pain TECHNIQUE: 4 view(s) of the knee. COMPARISON: None. FINDINGS: Normal visualized distal femur. Normal visualized proximal tibia and fibula. Normal proximal tibiofibular articulation. There is no demonstrated fracture. Normal medial femorotibial compartment. Normal lateral femorotibial compartment. Normal patellofemoral articulation. There is no demonstrated joint effusion. The soft tissue structures are unremarkable. RAD/Knee 4 or More Views IMPRESSION: Normal x-ray examination of the knee. Electronically Signed: Wai Kapadia MD at 19:15 EDT ,
[2024-07-22 20:21] VITALS: BP 189/92; PULSE 75; RESP 18; TEMP 37.4; O2SAT 96
== END 2024-07-22 20:26 | disposition home or self-care (01) ==
PROVIDERS: Emergency Provider Emergency Medicine; PCP Family Medicine; Visit Provider Emergency Medicine
DX: M25.562 Pain in left knee (principal); I10 Essential (primary) hypertension; Z79.899 Other long term (current) drug therapy
CPT/HCPCS: 73564; 99282

== ENCOUNTER → 2024-08-10 | Outpatient (CLI) | payer BC, SELFPAY ==
--- NOTE | 2024-08-10 16:18 | MRI_ITS ---
STUDY: MRI LEFT KNEE REASON FOR EXAM: Female, 44 years old. Left knee pain. TECHNIQUE: Standardized fat and water weighted pulse sequences were obtained in all 3 orthogonal planes. COMPARISON: Left knee x-rays dated July 22, 2024 FINDINGS: Normal medial meniscus. Mild thinning of the articular cartilage of the medial femorotibial compartment with reactive subchondral bone marrow edema of the medial tibial plateau (coronal series 6 images 9-18). Normal medial collateral ligamentous complex (MCL). Normal distal semimembranosus, gracilis and semitendinosus tendons. Normal lateral meniscus. Mild thinning of the articular cartilage of the lateral femorotibial compartment (coronal series 6 images 10-18). Normal lateral femoral condyle and tibial plateau. Normal proximal tibiofibular articulation. Normal lateral collateral (fibular) ligament. Normal popliteus tendon. Normal biceps femoris tendon. Normal anterior cruciate ligament (ACL). Normal posterior cruciate ligament (PCL). Lateral tilt and subluxation of the patella with moderate thinning of the articular cartilage of the patellofemoral compartment (axial series 2 images 10-15). Normal medial and lateral patellar retinaculum. Normal quadriceps tendon. Normal patellar tendon. Normal Hoffa''s fat pad. Moderate-sized joint effusion with medial and lateral plicae (axial series 2 images 8-19). Substantial prepatellar subcutaneous soft tissue edema (sagittal series 4 images 10-18). Other osseous structures are normal. MRI/Lower Ext Joint Only (Routine) IMPRESSION: Mild thinning of the articular cartilage of the medial and lateral femorotibial compartments as described. Lateral tilt and subluxation of the patella with moderate thinning of the articular cartilage of the patellofemoral compartment. Substantial prepatellar subcutaneous soft tissue edema. Moderate-sized joint effusion with medial and lateral plicae. Electronically Signed: Anuj Bartlett MD at 11:30 EDT ,
== END | disposition home or self-care (01) ==
LOC: MRI 16:13
PROVIDERS: PCP Family Medicine; Referring Provider Family Medicine; Visit Provider Family Medicine
DX: M25.562 Pain in left knee (principal)
CPT/HCPCS: 73721

== ENCOUNTER 2024-12-09 17:36 | Emergency (ER) | payer SELFPAY ==
[2024-12-09 17:38] VITALS: BP 181/84; PULSE 69; RESP 16; TEMP 36.6; O2SAT 96; BMI 49.1
[2024-12-09 17:55] VITALS: BP 193/74; PULSE 68; O2SAT 100
--- NOTE | 2024-12-09 18:03 | ED.RN ---
pt disclosed to this nurse that she has diagnosed hypertension and does not take her blood pressure medication because she does not need it. this nurse educated pt.
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
--- NOTE | 2024-12-09 18:27 | ED.RN ---
patient and S.O upset with Dr. Harper. patient states he just told me he would be back and never said anything about me being discharged
== END 2024-12-09 18:30 | disposition home or self-care (01) ==
LOC: ED 18:21
PROVIDERS: Emergency Provider Emergency Medicine; PCP Family Medicine; Visit Provider Emergency Medicine
DX: S39.012A Strain of muscle, fascia and tendon of lower back, initial encounter (principal); S16.1XXA Strain of muscle, fascia and tendon at neck level, initial encounter; S80.00XA Contusion of unspecified knee, initial encounter; I10 Essential (primary) hypertension; V49.50XA Passenger injured in collision with unspecified motor vehicles in traffic accident, initial encounter; Z79.899 Other long term (current) drug therapy
CPT/HCPCS: 99282

== ENCOUNTER → 2025-08-20 | Outpatient (CLI) | payer BC, SELFPAY ==
[2025-08-20 09:57] LABS: Hematocrit 41.5 % (37-47); Hemoglobin 14.6 g/dL (12.0-15.0); Mean Corp Hgb Conc 35.2 g/dL (32-36); Mean Corpuscular Volume 90.0 fL (81-99); Mean Platelet Vol. 10.0 fl (6.2-12.0); Platelet Count 265 K/mm3 (150-450); RBC Distribution Width CV 12.3 % (11.6-14.6); RBC Distribution Width SD 40.0 fl (35.1-43.9); Red Blood Count 4.61 M/mm3 (4.2-5.4); White Blood Count 5.9 K/mm3 (4.4-11.0)
[2025-08-20 10:50] LABS: AST(SGOT) 20 U/L (<=31); Alanine Aminotransfer ALT/SGPT 27 U/L (<=34); Albumin, Serum 4.0 g/dL (3.5-5.0); Alkaline Phosphatase 82 U/L (35-104); Anion Gap 12 (5-15); BUN 20 mg/dL (4-19); BUN/Creat Ratio 28.3 RATIO (10-20); Calcium,Total 9.3 mg/dL (7.6-11.0); Carbon Dioxide 24.1 mmol/L (21.0-32.0); Chloride 104 mmol/L (98-108); Cholesterol 245 mg/dL (<=200); Globulin 3.1 g/dL (2.2-4.2); Glucose 135 mg/dL (70-99); Low Density Lipoprotein Calc. 153 mg/dL; Potassium 4.4 mmol/L (3.3-5.1); Triglycerides 228 mg/dL; Very Low Density Lipoprotein 46 mg/dL (5-40); Vitamin D,25 Hydroxy 12.6 ng/mL (30-100); cholesterol:hdl ratio screen 5.24
== END | disposition home or self-care (01) ==
LOC: LAB 09:18
PROVIDERS: PCP Family Medicine; Referring Provider Family Medicine; Visit Provider Family Medicine
DX: Z13.220 Encounter for screening for lipoid disorders (principal); Z13.29 Encounter for screening for other suspected endocrine disorder; I10 Essential (primary) hypertension
CPT/HCPCS: 36415; 80053; 80061; 82306; 84443; 85027